=== PATIENT | male | born 1975 | race Caucasian/White ===

== ENCOUNTER 2019-02-14 17:10 | Emergency (ER) | payer OTHER ==
[2019-02-14 17:26] VITALS: BP 136/87
--- NOTE | 2019-02-14 19:03 | ER Document Report ---
HPI - HPI Time Seen by Provider: 02/14/19 18:57 Pain Level: 3 Context: Patient is a erinn 43-year-old male who presents to the emergency department with left knee pain. He fell down stairs yesterday. He is been able to walk on it, but the pain continues to hurt. He has been taking ibuprofen for his pain. Helps a little bit. He was offered more pain medication and he declined. - ROS Systems Reviewed and Negative: Yes All other systems reviewed and negative - MUSCULOSKELETAL Musculoskeletal: REPORTS: Extremity pain - left knee, Swelling - small amount to left knee. DENIES: Back Pain, Neck Pain - DERM Skin Color: Normal Skin Problems: None Past Medical History - General Information source: Patient - Social History Smoking Status: Former Smoker Chew tobacco use (# tins/day): No Frequency of alcohol use: None Drug Abuse: None Family History: Reviewed & Not Pertinent Patient has suicidal ideation: No Patient has homicidal ideation: No Vertical Provider Document - CONSTITUTIONAL Agree With Documented VS: Yes Exam Limitations: No Limitations General Appearance: No Apparent Distress - HEENT HEENT: Atraumatic, Normocephalic, PERRLA - NECK Neck: Normal Inspection - RESPIRATORY Respiratory: No Respiratory Distress - CARDIOVASCULAR Cardiovascular: Regular Rate, Regular Rhythm Pulses: Normal: Popliteal - MUSCULOSKELETAL/EXTREMETIES Musculoskeletal/Extremeties: Tender - left knee. negative: FROM - Decreased to left knee - NEURO Level of Consciousness: Awake, Alert, Appropriate Motor/Sensory: No Motor Deficit, No Sensory Deficit - DERM Integumentary: Warm, Dry, No Rash Course - Re-evaluation Re-evalutation: 02/14/19 20:25 Patient's x-ray shows that he has a possible patellar fracture. This is not 100% sure. An MRI is recommended. I have advised the patient to follow-up with his PCM. He is in agreement with this plan he will be placed in a knee immobilizer, given crutches, and an Dk wrap. Discussed these results with the patient. He is in agreement with this plan. Follow-up precautions were given. Verbal discharge instructions were given to the patient. They verbalized understanding. They are stable for discharge. - Vital Signs Vital signs: Temp Pulse Resp BP Pulse Ox 98.5 F 99 14 136/87 H 95 02/14/19 17:17 02/14/19 17:17 02/14/19 17:17 02/14/19 17:17 02/14/19 17:17 Procedures - Immobilization Left Knee Pre-Proc Neuro Vasc Exam: Normal Immobilizer type: Dk wrap, Crutches, Knee immobilizer Performed by: PCT Post-Proc Neuro Vasc Exam: Normal, Unchanged from pre-exam Alignment checked and good: Yes Discharge - Discharge Clinical Impression: Knee pain Qualifiers: Chronicity: acute Laterality: left Qualified Code(s): M25.562 - Pain in left knee Condition: Stable Disposition: HOME, SELF-CARE Instructions: Use of Crutches ([facility]), Ice & Elevation ([facility]), Knee Immobilizing Splint ([facility]), Sprained Knee ([facility]) Additional Instructions: You were seen today in the emergency department for knee pain after a fall. There is a possible fracture in your kneecap. Please follow-up with orthopedics in regards to this visit. Take ibuprofen 600 mg and acetaminophen 1000 mg every 6 hours for your pain. Rest, apply ice, and elevate your leg. Use the crutches, Dk wrap, and knee immobilizer. Referrals: JOCELYN ANAND MD [ACTIVE PROVISIONAL STAFF] - Follow up as needed ELIZABETH FAUST JR, [ACTIVE PROVISIONAL STAFF] - Follow up as needed GE REDDY MD [ACTIVE STAFF] - Follow up as needed [facility] [Provider Group] - Follow up in 3-5 days
--- NOTE | 2019-02-14 19:59 | RADIOLOGY REPORT (SQ) ---
EXAM DESCRIPTION: KNEE LEFT 4 VIEW COMPLETED DATE/TIME: 02/14/2019 7:10 pm REASON FOR STUDY: fall left knee pain COMPARISON: None. NUMBER OF VIEWS: Four views. TECHNIQUE: AP, lateral, and both oblique radiographic images acquired of the left knee. LIMITATIONS: None. FINDINGS: MINERALIZATION: Normal. BONES: No definite acute fracture of the knee. 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 JOINT: No effusion. SOFT TISSUES: No soft tissue swelling. No radio-opaque foreign body. OTHER: No other significant finding. IMPRESSION: No definite acute fracture of the knee. 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 MRI may be u sed to further evaluate both fracture edema and internal derangement of the knee if indicated by clin ical examination. Joint spaces are well preserved. There is no knee joint effusion. TECHNICAL DOCUMENTATION: JOB ID: [id number]- All Rights Reserved Reading location - IP/workstation name: [email or web address]
== END 2019-02-14 20:55 | disposition home or self-care (01) ==
LOC: ER 17:10
DX: M25.562 Pain in left knee (principal); W10.9XXA Fall (on) (from) unspecified stairs and steps, initial encounter; Z87.891 Personal history of nicotine dependence; Z79.899 Other long term (current) drug therapy
CPT/HCPCS: 99283; 73564; L1830

== ENCOUNTER 2019-10-26 20:31 | Emergency (ER) | payer OTHER ==
[2019-10-26 20:37] VITALS: BP 128/81
--- NOTE | 2019-10-26 21:13 | ER Document Report ---
HPI - HPI Time Seen by Provider: 10/26/19 20:55 Pain Level: 3 Context: Patient is a 44-year-old male who presents to the emergency department with a chief complaint of back pain. Patient states that his pain starts in his left low back and radiates down his left leg. Patient states that he has had problems with this in the past. He was started on meloxicam and cyclobenzaprine, but states he has not had any relief of his symptoms. Patient states that he normally would go to physical therapy and states that that would help him. Denies any numbness or tingling. Denies history of IV drug use. Denies any loss of bladder or bowel dysfunction. Denies history of cancer. - ROS Systems Reviewed and Negative: Yes All other systems reviewed and negative - CONSTITUTIONAL Constitutional: DENIES: Fever, Chills - NEURO Neurology: DENIES: Headache, Weakness - URINARY Urinary: DENIES: Dysuria, Urgency, Frequency - MUSCULOSKELETAL Musculoskeletal: REPORTS: Extremity pain - Left leg, Back Pain - Left low back - DERM Skin Color: Normal Skin Problems: None Past Medical History - Social History Smoking Status: Never Smoker Family History: Reviewed & Not Pertinent Vertical Provider Document - CONSTITUTIONAL Agree With Documented VS: Yes Exam Limitations: No Limitations General Appearance: No Apparent Distress - INFECTION CONTROL TRAVEL OUTSIDE OF THE [place] IN LAST 30 DAYS: No - HEENT HEENT: Atraumatic, Normocephalic, PERRLA - NECK Neck: Normal Inspection - RESPIRATORY Respiratory: Breath Sounds Normal, No Respiratory Distress - CARDIOVASCULAR Cardiovascular: Regular Rate, Regular Rhythm Pulses: Normal: Radial - MUSCULOSKELETAL/EXTREMETIES Musculoskeletal/Extremeties: FROM, Tender - Left low back - NEURO Level of Consciousness: Awake, Alert, Appropriate Motor/Sensory: No Motor Deficit, No Sensory Deficit - DERM Integumentary: Warm, Dry Course - Re-evaluation Re-evalutation: 10/26/19 Differential diagnosis for back pain includes muscle spasm, muscle strain, slipped disc cauda equina syndrome, vertebral fracture, vertebral tumor, epidural abscess, pyelonephritis, or AAA. Based on history and exam, the most likely etiology of the patient's back pain is chronic. Emergent MRI is not indicated at this time because the patient does not have new weakness, or cauda equina syndrome. Patient does not have bladder or bowel dysfunction. Patient does not have history of IV drug use, therefore, I do not suspect an epidural abscess. Patient does not have recent weight loss or night sweats, and does not have a known history of cancer. Will prescribe him Robaxin and naproxen. He is in agreement with this plan. Follow-up precautions were given. Verbal discharge instructions were given to the patient. They verbalized understanding. They are stable for discharge. - Vital Signs Vital signs: Temp Pulse Resp BP Pulse Ox 98.4 F 87 16 128/81 H 97 10/26/19 20:35 10/26/19 20:35 10/26/19 20:35 10/26/19 20:35 10/26/19 20:35 Discharge - Discharge Clinical Impression: Back pain Qualifiers: Back pain location: low back pain Chronicity: acute Back pain laterality: left Sciatica presence: with sciatica Sciatica laterality: sciatica of left side Qualified Code(s): M54.42 - Lumbago with sciatica, left side Condition: Stable Disposition: HOME, SELF-CARE Instructions: Low Back Pain ([facility]), Muscle Strain ([facility]), Stretching Exercises for the Back ([facility]) Additional Instructions: You were seen today in the emergency department for back pain. Your back pain is most consistent with sciatic nerve pain. Take your medications as prescribed. Follow-up with your primary care provider. See if he can get a referral for physical therapy. If you develop a fever greater than 100.4 F, lose bowel or bladder function, are unable to walk, or have any symptoms that are worrisome to you, please return to the emergency department. Prescriptions: Lidocaine [Lidoderm 5% (700 mg) Transdermal Patch] 1 patch TP DAILYP PRN #10 adh..patch PRN Reason: Naproxen 500 mg PO BID #20 tablet Methocarbamol [Robaxin 750 mg Tablet] 750 mg PO ASDIR PRN #40 tablet PRN Reason: Referrals: CATHERINE RAI PA-C [PHYSICIAN [employer]] - Follow up in 3-5 days
== END 2019-10-26 21:18 | disposition home or self-care (01) ==
LOC: ER 20:31
DX: M54.42 Lumbago with sciatica, left side (principal)
CPT/HCPCS: 99283